=== PATIENT | female | born 1990 | race Two or more races ===

== ENCOUNTER 2024-04-04 17:59 | Emergency (ER) | payer OTHER ==
[~2024-04-04] VITALS: Ht 139.7 cm; Wt 59.0 kg
[2024-04-04 19:30] LABS: HEMOGLOBIN 13.7 g/dL (12.0-15.00); MEAN CELL VOLUME 92.8 fL (80.00-100.00); MEAN CORPUSCULAR HEMOGLOBIN 31.7 pg (27.00-32.0); MEAN CORPUSCULAR HGB CONC 34.2 g/dl (32.0-36.0); PLATELET COUNT 228 K/uL (150-450); RED BLOOD COUNT 4.31 M/uL (4.00-6.00); RED CELL DISTRIBUTION WIDTH 13.3 % (11.5-14.5)
[2024-04-04 19:47] LABS: BILIRUBIN TOTAL 0.66 mg/dL (0.3-1.2); CALCIUM 9.3 mg/dL (8.5-10.1); CREATININE SERUM 0.7 mg/dL (0.55-1.02); GFR 95.22; POTASSIUM 3.93 mEq/L (3.5-5.1)
== END 2024-04-04 21:44 | disposition home or self-care (01) ==
LOC: ER 18:01
PROVIDERS: General Practice
DX: R20.0 Anesthesia of skin (principal); R20.2 Paresthesia of skin; Z88.8 Allergy status to other drugs, medicaments and biological substances